=== PATIENT | female | born 1970 | race Caucasian/White ===

== ENCOUNTER 2017-10-13 14:44 | Outpatient (CLI) | payer OTHER ==
[2017-10-13] MEDS ORDERED: IOPAMIDOL-300 50 ML VIAL ONE (14:57)
[2017-10-13] MEDS ORDERED: IOPAMIDOL-300 100 ML VIAL ONE (14:57)
[2017-10-13 15:15] LABS: BASOPHILS # (AUTO) 0.1 10^3/uL (0.0-0.1); BASOPHILS % (AUTO) 1.1 %; EOSINOPHILS # (AUTO) 0.1 10^3/uL (0.0-0.7); EOSINOPHILS % (AUTO) 2.2 %; HCT - HEMATOCRIT 41.8 % (37.0-47.0); HGB - HEMOGLOBIN 13.9 g/dL (12.0-16.0); LYMPHOCYTES # (AUTO) 2.9 10^3/uL (1.5-3.5); LYMPHOCYTES % (AUTO) 43.2 %; MEAN CORPUSCULAR HEMOGLOBIN 30.2 pg (27.0-31.0); MEAN CORPUSCULAR HGB CONC 33.1 g/dL (32.0-36.0); MEAN CORPUSCULAR VOLUME 91.1 fL (81.0-99.0); MEAN PLATELET VOLUME 7.5 fL (7.9-10.8); MONOCYTES # (AUTO) 0.8 10^3/uL (0.0-1.0); MONOCYTES % (AUTO) 12.6 %; NEUTROPHILS # (AUTO) 2.7 10^3/uL (1.5-6.6); NEUTROPHILS % (AUTO) 40.9 %; RED BLOOD COUNT 4.59 10^6/uL (4.20-5.40); UNCORRECTED WHITE BLOOD COUNT 6.7 x10^3/uL; WHITE BLOOD COUNT 6.7 x10^3/uL (4.8-10.8)
[2017-10-13 15:27] LABS: ALBUMIN/GLOBULIN RATIO 1.4 (1.0-2.2); BILIRUBIN,TOTAL 0.6 mg/dL (0.2-1.0); CREATININE 0.7 mg/dL (0.4-1.0); POTASSIUM 4.1 mmol/L (3.5-5.0); TOTAL PROTEIN 7.3 g/dL (6.7-8.2)
--- NOTE | 2017-10-13 16:34 | CT Preliminary Report ---
Exam: CT ABDOMEN/PELVIS W/ IMPRESSION: 1. No acute solid or hollow viscus organ abnormalities account for the patient's abdominal pain. 2. There is hepatic steatosis. [facility] SITE ID: [id number]
[2017-10-13 16:36] LABS: BILIRUBIN,URINE NEGATIVE (NEGATIVE)
--- NOTE | 2017-10-13 16:36 | CT Report ---
EXAM: CT ABDOMEN AND PELVIS EXAM DATE: 10/13/2017 04:17 PM. CLINICAL HISTORY: Left lower quadrant pain COMPARISONS: 09/11/2016. TECHNIQUE: Routine helical CT imaging was performed through the abdomen and pelvis. IV contrast: 100M L ISOVUE 300. Enteric contrast: Positive. Reconstructions: Coronal and sagittal. In accordance with CT protocol optimization, one or more of the following dose reduction techniques w ere utilized for this exam: automated exposure control, adjustment of mA and/or KV based on patient s ize, or use of iterative reconstructive technique. FINDINGS: Lung Bases: Unremarkable. Liver: There is hepatic steatosis. No focal hepatic abnormalities are seen. Gallbladder/Bile Ducts: Unremarkable. Spleen: Normal. Pancreas: Normal. Adrenal Glands: Normal. Kidneys: Normal. No masses or hydronephrosis. Peritoneal Cavity/Bowel: Normal. No free fluid, free air or adenopathy. No masses or acute inflammato ry process. The appendix is well visualized and normal. Pelvic Organs: Normal. The bladder and visualized pelvic organs are within normal limits. Vasculature: No aneurysms or other significant abnormality. Bones: No significant abnormality. Other: None. IMPRESSION: 1. No acute solid or hollow viscus organ abnormalities account for the patient's abdominal pain. 2. There is hepatic steatosis. [facility] Referring Provider Line: [phone] SITE ID: [id number]
[2017-10-13] MEDS ORDERED: IOPAMIDOL-300 100 ML VIAL IVP ONE (16:39)
[2017-10-13] MEDS ORDERED: IOPAMIDOL-300 50 ML VIAL PO ONE (16:39)
[2017-10-13 17:00] LABS: UR CULTURE IF IND NOT INDICATED
== END 2017-10-13 14:45 | disposition home or self-care (01) ==
LOC: DI 14:44
PROVIDERS: ATTEND Internal Medicine
DX: R10.32 Left lower quadrant pain (principal); Z79.899 Other long term (current) drug therapy
CPT/HCPCS: 36415; 74177; 80053; 81001; 85025; Q9967; 87086

== ENCOUNTER 2019-07-21 02:09 | Emergency (ER) | payer BC, OTHER ==
[2019-07-21 02:16] VITALS: BP 137/73
[2019-07-21] MEDS ORDERED: CHERRY SYRUP 10 ML UDC PO ONE (02:39)
[2019-07-21] MEDS ORDERED: KETOROLAC 30 MG/ML VIAL IM STA (02:39)
[2019-07-21] MEDS ORDERED: DEXAMETHASONE 10 MG/ML VIAL PO STA (02:39)
--- NOTE | 2019-07-21 02:41 | ED Physician Documentation ---
PD HPI URI - Stated complaint Stated Complaint: SORE THROAT - Chief complaint Chief Complaint: Heent - History obtained from History obtained from: Patient, Family - History of Present Illness Timing - onset: How many days ago (4) Timing duration: Days (4-5 days) Timing details: Gradual onset Severity Comments: moderate Associated symptoms: Sore throat, Swollen nodes. No: Fever, Chills, Sweats, Ear pain, Nasal congestion, Rhinorrhea, Sinus pain, Dry cough, Productive cough, Hemoptysis, Chest pain, Dyspnea, NVD Contributing factors: No: Immunocompromised, Unimmunized Improves by: Nothing Worsened by: Other (swallowing) Recently seen: Not recently seen - Treatment prior to arrival Treatment prior to arrival: none Review of Systems Ten Systems: 10 systems reviewed and negative Constitutional: denies: Fever Ears: reports: Reviewed and negative Nose: reports: Reviewed and negative Throat: reports: Sore throat. denies: Swollen tonsils Respiratory: reports: Reviewed and negative. denies: Cough Skin: reports: Reviewed and negative Neurologic: reports: Reviewed and negative Immunocompromised: reports: Reviewed and negative PD PAST MEDICAL HISTORY - Past Medical History Past Medical History: No Cardiovascular: None Respiratory: None Neuro: None Endocrine/Autoimmune: None GI: None CONTENT ARCHITECT: None : None HEENT: None Psych: None Musculoskeletal: None Derm: None - Past Surgical History Past Surgical History: Yes HEENT: Tonsil/Adenoidectomy - Present Medications Home Medications: Ambulatory Orders Medication Instructions Recorded Confirmed No Known Home Medications 04/24/16 07/21/19 - Allergies Allergies/Adverse Reactions: Allergies Allergy/AdvReac Type Severity Reaction Status Date / Time Penicillins Allergy Hives Verified 07/21/19 02:16 - Social History Does the pt smoke?: No Smoking Status: Never smoker Does the pt drink ETOH?: Yes Does the pt have substance abuse?: No - Immunizations Immunizations are current?: Yes - POLST Patient has POLST: No PD ED PE NORMAL - Vitals Vital signs reviewed: Yes - General General: Alert and oriented X 3, No acute distress - HEENT HEENT: Atraumatic - Neck Neck: Supple, no meningeal sign, No JVD - Cardiac Cardiac: RRR - Respiratory Respiratory: No respiratory distress - Abdomen Abdomen: Non distended - Female Female : Deferred - Rectal Rectal: Deferred - Derm Derm: Normal color, Warm and dry, No rash - Neuro Neuro: Alert and oriented X 3 Eye Opening: Spontaneous Motor: Obeys Commands Verbal: Oriented GCS Score: 15 - Psych Psych: Normal mood, Normal affect PD ED PE EXPANDED - HEENT HEENT: Pharyngeal erythema, Other (mild uvular swelling and erythema, uvula is midline ). 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 Well appearing, no drooling or trismus. Uvula midline, no tonsillitis and no evidence of PIANO MACHINE OPERATOR. No exudate. Pt does appear to have a uvulitis. She has normal ROM of the neck thus doubt RPA. Will give a dose of toradol and decadron for pain and swelling and pt is stable for discharge with outpt supportive care. Given return precautions if worsening symptoms, difficulty swallowing or breathing or new concerning symptoms. Departure - Departure Disposition: 01 Home, Self Care Clinical Impression: Uvulitis Condition: Stable Record reviewed to determine appropriate education?: Yes Instructions: ED Uvulitis Follow-Up: Lazara Campuzano MD [Primary Care Provider] - Comments: You appear to have uvulitis which is similar to pharyngitis. It is usually viral in etiology and improves within a week. Take ibuprofen and tylenol as needed for pain and follow up with your regular doctor if symptoms persist after a week. Discharge Date/Time: 07/21/19 03:14
== END 2019-07-21 03:14 | disposition home or self-care (01) ==
LOC: ED 02:09
DX: K12.2 Cellulitis and abscess of mouth (principal)
CPT/HCPCS: 87070; 87430; 96372; 99282; 99283; A9270

== ENCOUNTER 2019-11-02 15:35 | Outpatient (CLI) | payer BC ==
--- NOTE | 2019-11-03 11:58 | Mammography Report ---
Reason: ROUTINE MAMMO Procedure Date: 11/02/2019 Accession Number: [id number] / [id number] Procedure: ROXANE - Screening Mammo Dig Bilat CPT Code: Final Report FULL RESULT: EXAM: Screening Mammo Dig Bilat DATE: 11/02/2019 3:56 PM CLINICAL HISTORY: The patient is an asymptomatic 49-year-old female. No personal or family history breast cancer. TECHNIQUE: (B) - Bilateral CC, exaggerated CC and MLO views were obtained. COMPARISON: 05/09/2015 PARENCHYMAL PATTERN: (D) - The breasts demonstrate heterogeneously dense fibroglandular parenchyma bilaterally. FINDINGS: The pattern of asymmetry is stable given positional variation and progressive involution. There are no suspicious masses, calcifications, or areas of distortion. IMPRESSION: Negative examination. BI-RADS category 1. RECOMMENDATION: (ANNUAL) - Recommend routine annual screening mammography. BI-RADS CATEGORY: (1) - Negative. STANDARD QUALIFYING STATEMENTS: 1. This examination was not reviewed with the aid of Computer-Aided Detection (CAD). 2. A negative or benign imaging report should not preclude biopsy if clinically suspicious findings are present. 3. Dense breasts may obscure an underlying neoplasm.
== END 2019-11-02 15:36 | disposition home or self-care (01) ==
LOC: DI 15:35
DX: Z12.31 Encounter for screening mammogram for malignant neoplasm of breast (principal)
CPT/HCPCS: 77067

== ENCOUNTER 2022-09-13 07:49 | Outpatient (CLI) | payer BC, OTHER ==
--- NOTE | 2022-09-27 10:19 | Mammography Report ---
BILATERAL DIGITAL SCREENING MAMMOGRAM 3D/2D: 09/13/2022 CLINICAL: Routine screening. Comparison is made to exams dated: 11/02/2019 mammogram and 05/09/2015 mammogram - [facility]. There are scattered areas of fibroglandular density in both breasts (category b / 25%-50% glandular t issue). No significant masses, calcifications, or other findings are seen in either breast. There has been no significant interval change. IMPRESSION: NEGATIVE There is no mammographic evidence of malignancy. A 1 year screening mammogram is recommended. Based on the Tyrer Cuzick model (a risk assessment model) the patients lifetime risk is 6.5% and her 10 year risk is 1.5%. According to the ACR, ACS, and NCCN guidelines, an annual breast MRI exam ewa g with mammogram is recommended if the patients lifetime risk is 20% or greater. This exam was interpreted at Station ID: [id number]. NOTE: For mammograms, a report in lay terms will be sent to the patient. Approximately 15% of breast malignancies will not be visualized mammographically. In the management of a palpable breast mass, a negative mammogram must not discourage biopsy of a clinically suspicious lesion. Electronically Signed By: Liu Reece M.D. aty/[email or web address]:09/17/2022 23:22:09 ACR BI-RADS Category 1: Negative 3341F PARENCHYMAL PATTERN: (A) - The breast(s) demonstrate(s) scattered fibroglandular densities. BI-RADS CATEGORY: (1) - 1 RECOMMENDATION: (ANNUAL) - Recommend routine annual screening mammography. [id number] 1 year screening LATERALITY: (B)
== END 2022-09-13 07:50 | disposition home or self-care (01) ==
LOC: DI 07:49
PROVIDERS: ATTEND Nurse Practitioner
DX: Z12.31 Encounter for screening mammogram for malignant neoplasm of breast (principal)
CPT/HCPCS: 36415; 80048; 80061; 83036; 84439; 84443; 85027

== ENCOUNTER 2022-09-13 08:17 | Outpatient (CLI) | payer BC, OTHER ==
[2022-09-13 08:26] LABS: HCT - HEMATOCRIT 44.2 % (37.0-47.0); HGB - HEMOGLOBIN 13.8 g/dL (12.0-16.0); MEAN CORPUSCULAR HEMOGLOBIN 29.7 pg (27.0-31.0); MEAN CORPUSCULAR HGB CONC 31.2 g/dL (32.0-36.0); MEAN CORPUSCULAR VOLUME 95.1 fL (81.0-99.0); RED BLOOD COUNT 4.65 10^6/uL (4.20-5.40); RED CELL DISTRIBUTION WIDTH 13.3 % (12.0-15.0); WHITE BLOOD COUNT 6.2 x10^3/uL (4.8-10.8)
[2022-09-13 08:57] LABS: BUN - BLOOD UREA NITROGEN 11 mg/dL (6-20); CALCIUM 9.5 mg/dL (8.5-10.3); CARBON DIOXIDE - CO2 25 mmol/L (21-32); CHLORIDE 103 mmol/L (101-111); CHOL/HDL RATIO 5.6 (<4.4); CHOLESTEROL 275 mg/dL; CREATININE 0.7 mg/dL (0.4-1.0); GFR - MDRD 89 (>89); GLUCOSE 120 mg/dL (70-100); HDL CHOLESTEROL 49 mg/dL; LDL CHOLESTEROL,CALCULATED 198 mg/dL; POTASSIUM 4.2 mmol/L (3.5-5.0); SODIUM 138 mmol/L (135-145); TRIGLYCERIDES 140 mg/dL; VLDL CHOLESTEROL 28 mg/dL
[2022-09-13 08:59] LABS: THYROID STIMULATING HORMONE 3.43 uIU/mL (0.34-5.60)
[2022-09-13 09:01] LABS: FREE T4 (FREE THYROXINE) 0.89 ng/dL (0.58-1.64)
[2022-09-13 12:00] LABS: ESTIMATED AVERAGE GLUCOSE 108 mg/dL (70-100); HEMOGLOBIN A1c% 5.4 % (4.27-6.07)
== END 2022-09-13 08:18 | disposition home or self-care (01) ==
LOC: LAB 08:17
PROVIDERS: ATTEND Nurse Practitioner
DX: R53.83 Other fatigue (principal); Z13.220 Encounter for screening for lipoid disorders; Z86.2 Personal history of diseases of the blood and blood-forming organs and certain disorders involving the immune mechanism
CPT/HCPCS: 36415; 80048; 80061; 83036; 83721; 84439; 84443; 85027

== ENCOUNTER 2023-01-17 15:56 | Outpatient (CLI) | payer BC, OTHER ==
--- NOTE | 2023-01-18 09:57 | Ultrasound Report ---
PROCEDURE: Retroperitoneal INDICATIONS: FLANK PAIN TECHNIQUE: Real-time scanning was performed of the retroperitoneal organs, with image documentation. COMPARISON: None. FINDINGS: Kidneys: Kidneys are normal in size. Right kidney measures 10.1 cm long; left kidney measures 11.2 cm long. Right renal cortical thickness is 1.2 cm; left renal cortical thickness is 1.5 cm. No amy d masses, hydronephrosis, or nephrolithiasis. Bladder: Pre-void bladder volume is 88.2 mL. Post-void residual is 2.4 mL. Pre-void images demonst rate no intraluminal masses or stones. On pre-void images, faint left ureteral jets is noted with co gracie Doppler interrogation. (Of note, ureteral jets may not be detectable in up to 25% of cases due t o insufficient differences in specific gravity between ureteral and bladder urine). Miscellaneous: No free abdominal fluid. IMPRESSION: 1. Normal-appearing bilateral kidneys. 2. No gross abnormality is seen in urinary bladder. Reviewed by: Federico Aldrich MD on 01/18/2023 9:56 AM [facility] Approved by: Federico Aldrich MD on 01/18/2023 9:56 AM PST Station ID: [id number]
== END 2023-01-17 15:57 | disposition home or self-care (01) ==
LOC: DI 15:56
PROVIDERS: ATTEND Nurse Practitioner
DX: R10.9 Unspecified abdominal pain (principal); N39.3 Stress incontinence (female) (male)

== ENCOUNTER 2023-02-21 17:41 | Outpatient (CLI) | payer BC, OTHER ==
[2023-02-21 18:29] LABS: HGB - HEMOGLOBIN 13.1 g/dL (12.0-16.0); MEAN CORPUSCULAR HEMOGLOBIN 29.8 pg (27.0-31.0); MEAN CORPUSCULAR HGB CONC 30.5 g/dL (32.0-36.0); MEAN CORPUSCULAR VOLUME 97.7 fL (81.0-99.0); MEAN PLATELET VOLUME 9.2 fL (7.9-10.8); RED BLOOD COUNT 4.4 10^6/uL (4.20-5.40); RED CELL DISTRIBUTION WIDTH 13.2 % (12.0-15.0); WHITE BLOOD COUNT 7.4 x10^3/uL (4.8-10.8)
--- NOTE | 2023-02-21 18:35 | Ultrasound Report ---
PROCEDURE: Abdomen Limited INDICATIONS: ABDOMINAL BLOATING. Evaluate appendix TECHNIQUE: Real-time focused scanning was performed of the abdomen, with image documentation. COMPARISON: CT abdomen pelvis 10/13/2017 FINDINGS: Appendix not visualized. No free fluid visualized in the imaged right lower quadrant of th e abdomen. IMPRESSION: Appendix not visualized sonographically Reviewed by: Raghu Herron MD on 02/21/2023 6:34 PM PDT Approved by: Raghu Herron MD on 02/21/2023 6:34 PM PDT Station ID: [id number]
== END 2023-02-21 17:42 | disposition home or self-care (01) ==
LOC: DI 17:41
PROVIDERS: ATTEND Nurse Practitioner
DX: R14.0 Abdominal distension (gaseous) (principal); R10.9 Unspecified abdominal pain
CPT/HCPCS: 36415; 85027

== ENCOUNTER 2023-05-13 18:25 | Outpatient (CLI) | payer BC, OTHER ==
--- NOTE | 2023-05-14 09:21 | Ultrasound Report ---
PROCEDURE: Pelvic w/Transvaginal INDICATIONS: ABNORMAL VAGINAL BLEEDING TECHNIQUE: Real-time scanning was performed of the pelvic organs, with image documentation. Additional endovagi nal scanning was necessary due to incomplete visualization of the adnexal and endometrial structures by transabdominal scanning. COMPARISON: None. FINDINGS: Uterus: Uterus is anteverted and normal in size at 8.5 x 4.2 x 5.2 cm. The myometrium is homogeneou s. The endometrium measures 15 mm in combined thickness. Ovaries: The right ovary measures 1.8 x 1 x 2 cm, with a calculated ovarian volume of 1.8 cc. The l eft ovary measures 3.3 x 2.3 x 3.3 cm, with a calculated ovarian volume of 13 cc. The ovaries have a normal sonographic appearance. Less than 12 follicles can be seen in each ovary. No adnexal masses are seen. No cystic lesions measuring greater than 3 cm. Other: No pathologic free abdominal or pelvic fluid. IMPRESSION: Endometrial thickness is 15 mm, nonspecific in this age group. Reviewed by: Kyler Barrientos on 05/14/2023 9:20 AM PDT Approved by: Kyler Barrientos on 05/14/2023 9:20 AM PDT Station ID: [id number]
== END 2023-05-13 18:26 | disposition home or self-care (01) ==
LOC: DI 18:25
PROVIDERS: ATTEND Nurse Practitioner
DX: N93.9 Abnormal uterine and vaginal bleeding, unspecified (principal)

== ENCOUNTER 2023-06-17 13:42 | Outpatient (CLI) | payer BC, OTHER ==
[2023-06-17 13:54] LABS: HCT - HEMATOCRIT 38.2 % (37.0-47.0); HGB - HEMOGLOBIN 12.1 g/dL (12.0-16.0); MEAN CORPUSCULAR HEMOGLOBIN 30.8 pg (27.0-31.0); MEAN CORPUSCULAR HGB CONC 31.7 g/dL (32.0-36.0); MEAN CORPUSCULAR VOLUME 97.2 fL (81.0-99.0); MEAN PLATELET VOLUME 9.4 fL (7.9-10.8); RED BLOOD COUNT 3.93 10^6/uL (4.20-5.40); RED CELL DISTRIBUTION WIDTH 12.8 % (12.0-15.0); WHITE BLOOD COUNT 6.2 x10^3/uL (4.8-10.8)
[2023-06-17 14:31] LABS: THYROID STIMULATING HORMONE 2.96 uIU/mL (0.34-5.60)
[2023-06-17 14:35] LABS: FERRITIN 179.7 ng/mL (11.0-306.8)
== END 2023-06-17 13:43 | disposition home or self-care (01) ==
LOC: LAB 13:42
PROVIDERS: ATTEND Nurse Practitioner
DX: N93.9 Abnormal uterine and vaginal bleeding, unspecified (principal)
CPT/HCPCS: 36415; 82728; 84443; 85027

== ENCOUNTER 2024-07-05 16:22 | Outpatient (CLI) | payer BC, OTHER ==
--- NOTE | 2024-07-05 18:54 | XRAY Report ---
PROCEDURE: Shoulder 2+V RT INDICATIONS: SHOULDER PAIN,RIGHT TECHNIQUE: 4 views of the shoulder were acquired. COMPARISON: None. FINDINGS: Bones: No fractures or dislocations. No suspicious bony lesions. Visualized ribs appear intact. Soft tissues: No suspicious soft tissue calcifications. The visualized lungs are within normal limi ts. IMPRESSION: No acute bony abnormality. Reviewed by: Keyona Alvarado MD on 07/05/2024 6:52 PM PDT Approved by: Keyona Alvarado MD on 07/05/2024 6:52 PM PDT Station ID: [id number]
== END 2024-07-05 16:23 | disposition home or self-care (01) ==
LOC: DI 16:22
PROVIDERS: ATTEND Physician Assistant Surgical
DX: M25.511 Pain in right shoulder (principal)

== ENCOUNTER 2024-08-26 17:19 | Outpatient (CLI) | payer BC, OTHER ==
--- NOTE | 2024-08-27 17:34 | XRAY Report ---
PROCEDURE: Chest 2V INDICATIONS: ACUTE COUGH TECHNIQUE: 2 views of the chest were acquired. COMPARISON: None. FINDINGS: Surgical changes and devices: None. Lungs and pleura: No pleural effusions or pneumothorax. Lungs are clear. Mediastinum: Mediastinal contours appear normal. Heart size is normal. Bones and chest wall: No suspicious bony lesions. Overlying soft tissues appear unremarkable. IMPRESSION: No focal infiltrates are seen. No acute cardiopulmonary process. Reviewed by: Teja Raymundo MD on 08/27/2024 4:33 PM [facility] Approved by: Teja Raymundo MD on 08/27/2024 4:33 PM [facility] Station ID: [id number]
== END 2024-08-26 17:20 | disposition home or self-care (01) ==
LOC: DI 17:19
PROVIDERS: ATTEND Physician Assistant
DX: R05.1 Acute cough (principal)